=== PATIENT | female | born 1970 | race Two or more races ===

== ENCOUNTER 2019-08-28 10:16 | Emergency (ER) | payer OTHER ==
[~2019-08-28] VITALS: Ht 167.6 cm; Wt 68.0 kg
[2019-08-28 10:19] VITALS: BP 143/76
[2019-08-28] MEDS ORDERED: SODIUM CHLORIDE 0.9% 1,000 ML IV ONE ×2 (10:46)
[2019-08-28] MEDS ORDERED: ONDANSETRON HCL 4 MG/2 ML VIAL IV ONE (11:00)
[2019-08-28 11:02] LABS: Basophils # (auto) 0 uL; Basophils % (auto) 0.4 % (0.0-2.0); Eosinophils # (auto) 0 uL; Eosinophils % (auto) 0.4 % (0.0-7.0); Hemoglobin 15.5 g/dL (12.2-16.2); Lymphocytes # (auto) 1.9 uL; Lymphocytes % (auto) 23.5 % (10.0-50.0); Mean Corpuscular Hemoglobin 31.1 pg (28.0-32.0); Mean Corpuscular Hgb Conc. 34.5 g/dL (32.0-36.0); Mean Corpuscular Volume 90.2 fL (80.0-100.0); Monocytes # (auto) 0.4 uL; Monocytes % (auto) 4.7 % (0.0-12.0); Neutrophils # (auto) 5.7 uL; Nucleated Red Blood Cells % 0.2 %; Platelet Count (auto) 229 10^3/uL (140-450); Red Blood Cells 4.99 10^6/uL (4.0-5.20); Red Cell Distribution Width 12.7 % (11.8-14.3); White Blood Cell 8.1 10^3/uL (4.4-10.8)
[2019-08-28 11:17] LABS: INR 1.07 (0.9-1.15); Partial Thromboplastin Time 23.6 sec (23.64-32.05)
[2019-08-28 11:18] LABS: Albumin 4.1 g/dL (3.4-5.0); Calcium 9.6 mg/dL (8.5-10.1); Potassium 3.7 mmol/L (3.5-5.1)
[2019-08-28 11:24] LABS: BUN/Creatinine Ratio 12.7; Bilirubin, Total 1.1 mg/dL (0.2-1.0); Total Protein 8.2 g/dL (6.4-8.2)
[2019-08-28 11:25] LABS: Urine WBC None Seen /hpf (0 - 5)
[2019-08-28 13:04] LABS: Urine Amorphous Crystal MANY /hpf (None Seen); Urine Bacteria NONE SEEN /hpf (None Seen); Urine Blood 2+ /uL (Negative); Urine Mucus FEW (None Seen); Urine Specific Gravity 1.019 (1.001-1.035)
[2019-08-28] MEDS ORDERED: KETOROLAC TROMETH 30 MG/ML 1ML VIAL IV ONE (14:15)
== END 2019-08-28 15:02 | disposition left against medical advice (07) ==
LOC: EDBD 10:16 → EDSEX 10:16 → ER 10:26
DX: E86.0 Dehydration (principal); N20.0 Calculus of kidney; N13.30 Unspecified hydronephrosis; Z88.0 Allergy status to penicillin
CPT/HCPCS: 36415; 71045; 74176; 80053; 81001; 81025; 84484; 85025; 85610; 85730